=== PATIENT | male | born 1965 | race Caucasian/White ===

== ENCOUNTER 2023-12-23 21:20 | Emergency (ER) | payer OTHER ==
[2023-12-23 21:33] VITALS: BP 153/94; O2SAT 100
--- NOTE | 2023-12-23 22:33 | XRAY Report ---
PROCEDURE: Ankle 3+V RT INDICATIONS: fall TECHNIQUE: 2 views of the ankle were acquired. COMPARISON: None. FINDINGS: Bones: No acute fractures or dislocations. Ankle mortise is normally aligned. No suspicious bony l esions. Well-corticated ossification inferior to the medial malleolus, consistent with remote fractur e. Soft tissues: No tibiotalar joint effusion. Achilles tendon appears normal. IMPRESSION: No acute bony abnormality or significant effusion. Reviewed by: Gurvinder Garcia MD on 12/23/2023 10:32 PM PDT Approved by: Gurvinder Garcia MD on 12/23/2023 10:32 PM PDT Station ID: [id number]
--- NOTE | 2023-12-23 22:36 | XRAY Report ---
PROCEDURE: Knee 4+V RT INDICATIONS: fall TECHNIQUE: 4 views of the knee(s) were acquired. COMPARISON: None. FINDINGS: Bones: No fractures or dislocations. No suspicious bony lesions. Soft tissues: Small knee joint effusion. No suspicious soft tissue calcifications or masses. Chondro calcinosis. IMPRESSION: No acute bony abnormality. Small knee joint effusion. Chondrocalcinosis, which could be age-related, associated with CPPD or parathyroid disorder. Reviewed by: Gurvinder Garcia MD on 12/23/2023 10:35 PM PDT Approved by: Gurvinder Garcia MD on 12/23/2023 10:35 PM PDT Station ID: [id number]
--- NOTE | 2023-12-23 22:55 | ED Physician Documentation ---
History of Present Illness - Stated complaint Stated Complaint: FALL/R KNEE/FOOT INJ - Chief complaint Chief Complaint: Trauma Ext - Additonal information Additional information: Patient is a 58-year-old male presents to the emergency department from home after tripping and falling down 2 stairs. Patient sustained injury to right knee and right ankle. He denies hitting his head he denies losing consciousness. Patient is not on blood thinners. He was able to get up and walk after injury. He denies any previous surgeries or injuries to his right ankle or right knee. PD PAST MEDICAL HISTORY - Past Medical History Past Medical History: Yes : Other Other Past Medical History: prostate CA - Past Surgical History Past Surgical History: Yes - Allergies Allergies/Adverse Reactions: Allergies Allergy/AdvReac Type Severity Reaction Status Date / Time No Known Drug Allergies Allergy Verified 12/23/23 21:27 - Social History Does the pt smoke?: No Smoking Status: Never smoker PD ED PE NORMAL - Vitals Vital signs reviewed: Yes - General General: Alert and oriented X 3 - HEENT HEENT: Atraumatic - Neck Neck: Supple, no meningeal sign - Cardiac Cardiac: RRR, No murmur, No gallop, No rub - Respiratory Respiratory: No respiratory distress, Clear bilaterally - Abdomen Abdomen: Normal bowel sounds - Back Back: No spinal TTP - Derm Derm: Other - Extremities Extremities: Other (Reproducible anterior right knee tenderness reproducible medial and lateral malleoli are tenderness on examination no obvious deformity no obvious laxity on examination. Decreased range of motion secondary to pain on exam. However pulses intact good capillary refill good sensation intact.) Results - Vitals Vitals: Oxygen O2 Source Room air PD Medical Decision Making - ED course Complexity details: reviewed old records, reviewed results ED course: Patient is a 58-year-old male presenting to the emergency department after a fall at home down 2 stairs. Patient denies losing consciousness and denies hitting his head. He is not on any blood thinners. Reproducible tenderness to anterior right knee and anterior right ankle. X-rays obtained of bilateral knee and ankle reviewed independently by me showed no acute findings radiologist read shows no acute fractures or injuries. Patient able to walk here in the emergency department feeling significantly better after pain medications given. Patient instructed to use ice elevate and rest at home for pain control. Patient understands and is agreeable with this plan. Patient has a small joint effusion on x-rays this is most likely a stable given his history of chronic right knee pain.Patient has a brace at home and was instructed to continue wearing to prevent further injury.No signs of concerning abrasions or open wounds concerning on examination no need for update of tetanus. Departure - Departure Disposition: 01 Home, Self Care Clinical Impression: Effusion, right knee, Ankle injury Condition: Good Instructions: ED Sprain Ankle W X Ray Follow-Up: Moo Adams MD [Provider Admit Priv/Credential] - Comments: You were seen here in the emergency department for your right knee and right foot pain your workup here showed no acute fractures. Continue to wear your brace at home return to the emergency department with any worsening pain numbness tingling worsening swelling or any other new or worsening symptoms. Follow-up with your PCP in 1 week to ensure resolution of symptoms. Forms: PCP List Discharge Date/Time: 12/23/23 22:58
== END 2023-12-23 22:58 | disposition home or self-care (01) ==
LOC: ED 21:20
DX: M25.461 Effusion, right knee (principal); S99.911A Unspecified injury of right ankle, initial encounter; W10.9XXA Fall (on) (from) unspecified stairs and steps, initial encounter; M25.561 Pain in right knee; G89.29 Other chronic pain
CPT/HCPCS: 99283